=== PATIENT | male | born 1945 | race Two or more races ===

== ENCOUNTER 2024-03-01 12:49 | Inpatient (IN) | payer MEDICAID ==
[~2024-03-01] VITALS: Ht 175.3 cm; Wt 73.0 kg
[2024-03-01] MEDS ORDERED: methylPREDNISolone SOD SUCC 125 MG/2ML VIAL ONE (13:20)
[2024-03-01] MEDS ORDERED: IPRATROPIUM NEB FS 0.5 MG/2.5 ML AMPUL.NEB ONE (13:26)
[2024-03-01] MEDS ORDERED: ALBUTEROL FS 2.5 MG/3 ML VIAL.NEB ONE (13:26)
[2024-03-01] MEDS: methylPREDNISolone SOD SUCC 125 MG/2ML VIAL IV ONE (13:30)
[2024-03-01 13:45] VITALS: O2SAT 93
[2024-03-01] MEDS: ALBUTEROL FS 2.5 MG/3 ML VIAL.NEB CONTNEB ONE (13:45)
[2024-03-01] MEDS: IPRATROPIUM NEB FS 0.5 MG/2.5 ML AMPUL.NEB NEB ONE (13:45)
[2024-03-01 13:57] LABS: BASOPHILS % (AUTO) 0.3 % (0.0-2.0); EOSINOPHILS # (AUTO) 0.1 K/uL (0.0-0.7); EOSINOPHILS % (AUTO) 0.9 % (0.0-6.0); HEMATOCRIT 40 % (39-51); HEMOGLOBIN 13.1 g/dL (13.5-17.5); LYMPHOCYTES # (AUTO) 2.2 K/uL (0.8-4.8); LYMPHOCYTES % (AUTO) 33.3 % (20.0-44.0); MEAN CORPUSCULAR HEMOGLOBIN 27 PG (26.0-33.0); MEAN CORPUSCULAR HGB CONC 33 g/dl (31.0-36.0); MEAN CORPUSCULAR VOLUME 83 fL (80-96); MONOCYTES # (AUTO) 0.5 K/uL (0.1-1.30); MONOCYTES % (AUTO) 7.7 % (2.0-12.0); NEUTROPHILS # (AUTO) 3.8 K/uL (1.8-8.9); NEUTROPHILS % (AUTO) 57.8 % (43.0-81.0); PLATELET COUNT (AUTO) 269 K/uL (150-450); RED BLOOD CELL COUNT(AUTO) 4.86 MIL/uL (4.5-6.0); RED CELL DISTRIBUTION WIDTH 14.1 % (11.5-15.0); WHITE BLOOD COUNT (AUTO) 6.5 K/uL (4.3-11.0)
[2024-03-01] MEDS ORDERED: FUROSEMIDE 20 MG/2 ML VIAL ONE (13:59)
[2024-03-01 14:00] LABS: CALCIUM, SERUM 9.7 mg/dL (8.5-10.1); CARBON DIOXIDE 24 mmol/L (21-32); CHLORIDE 106 mmol/L (98-107); CREATININE 1.1 mg/dL (0.6-1.3); GLUCOSE 131 mg/dL (74-106); POTASSIUM 4.2 mmol/L (3.5-5.1); SODIUM SERUM 141 mmol/L (136-145); UREA NITROGEN, BLOOD 19 mg/dL (7-18)
[2024-03-01 14:03] LABS: D-DIMER 2.95 mg/L(FEU (0.17-0.50); INR 1.08 (0.91-1.10); PARTIAL THROMBOPLASTIN TIME 30.9 SEC (24.3-34.3); PROTHROMBIN TIME 11.4 SECS (9.2-11.1)
[2024-03-01] MEDS: FUROSEMIDE 20 MG/2 ML VIAL IV ONE (14:05)
[2024-03-01 14:08] VITALS: O2SAT 98
[2024-03-01 14:15] LABS: NT-PRO BNP 12578 pg/mL (0-125)
[2024-03-01] MEDS ORDERED: IOHEXOL-350 100 ML VIAL IV ONE (14:20)
[2024-03-01] MEDS ORDERED: IV NS 0.9% 250 ML IV ONE (14:21)
[2024-03-01] MEDS ORDERED: ASPIRIN EC 81 MG TABLET.DR PO ONE (14:38)
[2024-03-01] MEDS: ASPIRIN EC 81 MG TABLET.DR PO ONE (14:41)
[2024-03-01] MEDS ORDERED: ONDANSETRON HCL/PF 4 MG/2 ML VIAL IVP PRN (15:30)
[2024-03-01] MEDS ORDERED: MAGNESIUM HYDROXIDE 30 ML UDC PO PRN (15:30)
[2024-03-01] MEDS ORDERED: ACETAMINOPHEN 325 MG TABLET PO PRN (15:30)
[2024-03-01 16:22] VITALS: BP 139/98; TEMP 98.1; O2SAT 96
[2024-03-01] MEDS ORDERED: Z GUARD REMEDY 4 OZ OINT TP PRN (17:00)
[2024-03-01] MEDS: FUROSEMIDE 40 MG/4 ML VIAL IV SCH (17:33)
[2024-03-01] MEDS: ENOXAPARIN SODIUM 40 MG/0.4 ML DISP.SYRIN SQ SCH (19:01)
[2024-03-01 19:07] LABS: ABG BASE EXCESS -2.4 mmol/L; ABG OXYGEN SATURATION 92.8 % (92.0-98.5); ABG PCO2 32.3 mmHg (35.0-45.0); ABG PH 7.431 (7.350-7.450); ABG PO2 66.2 mmHg (75.0-100.0); ABG TOTAL HEMOGLOBIN 13.9 G/dL (13.5-18.0); COHb 0.4 % (0.5-1.5); MetHb 0.2 % (0.0-1.5); O2Hb 92.2 % (94.0-97.0); SITE, ABG Right Radial; VENT MODE, BG ROOM AIR
[2024-03-01 20:00] VITALS: BP 122/82; TEMP 98.4; O2SAT 96
[2024-03-01] MEDS: ATORVASTATIN 10 MG TABLET PO SCH (21:07)
[2024-03-02] VITALS: BP 115/85; TEMP 97.7; O2SAT 96
[2024-03-02 04:00] VITALS: BP 114/83; TEMP 97.5; O2SAT 95
[2024-03-02 07:13] LABS: HEMATOCRIT 38 % (39-51); HEMOGLOBIN 12.5 g/dL (13.5-17.5); LYMPHOCYTES # (AUTO) 0.8 K/uL (0.8-4.8); LYMPHOCYTES % (AUTO) 15.7 % (20.0-44.0); MEAN CORPUSCULAR HEMOGLOBIN 27 PG (26.0-33.0); MEAN CORPUSCULAR HGB CONC 33 g/dl (31.0-36.0); MEAN CORPUSCULAR VOLUME 82 fL (80-96); MONOCYTES # (AUTO) 0.3 K/uL (0.1-1.30); MONOCYTES % (AUTO) 6.2 % (2.0-12.0); NEUTROPHILS % (AUTO) 78.1 % (43.0-81.0); PLATELET COUNT (AUTO) 262 K/uL (150-450); RED BLOOD CELL COUNT(AUTO) 4.65 MIL/uL (4.5-6.0); RED CELL DISTRIBUTION WIDTH 14.2 % (11.5-15.0); WHITE BLOOD COUNT (AUTO) 5.1 K/uL (4.3-11.0)
[2024-03-02 07:24] LABS: CALCIUM, SERUM 9.4 mg/dL (8.5-10.1); MAGNESIUM 2.2 mg/dL (1.8-2.4); PHOSPHORUS 4.4 mg/dL (2.5-4.9)
[2024-03-02 07:54] LABS: THYROID STIMULATING HORMONE 0.24 uIU/mL (0.358-3.74)
[2024-03-02 08:00] VITALS: BP 108/71; TEMP 97.7; O2SAT 94
[2024-03-02] MEDS: PANTOPRAZOLE 40 MG TABLET.DR PO SCH (08:28)
[2024-03-02] MEDS: ASPIRIN EC 81 MG TABLET.DR PO SCH (08:44)
[2024-03-02 12:00] VITALS: BP 106/72; TEMP 97.9; O2SAT 95
[2024-03-02] MEDS: METOPROLOL TARTRATE 25 MG TABLET PO SCH (15:20)
[2024-03-02] MEDS: LOSARTAN POTASSIUM 25 MG TABLET PO SCH (15:20)
[2024-03-02 16:00] VITALS: BP 114/85; TEMP 97.9; O2SAT 94
[2024-03-02] MEDS: ENOXAPARIN SODIUM 40 MG/0.4 ML DISP.SYRIN SQ SCH (16:37)
[2024-03-02 20:00] VITALS: BP 115/78; TEMP 98; O2SAT 96
[2024-03-03] VITALS: BP 116/72; TEMP 98.6; O2SAT 98
[2024-03-03 04:00] VITALS: BP 110/70; TEMP 98.2; O2SAT 98
[2024-03-03 06:43] LABS: BASOPHILS % (AUTO) 0.1 % (0.0-2.0); EOSINOPHILS # (AUTO) 0.2 K/uL (0.0-0.7); EOSINOPHILS % (AUTO) 2.2 % (0.0-6.0); HEMATOCRIT 40 % (39-51); HEMOGLOBIN 12.9 g/dL (13.5-17.5); LYMPHOCYTES # (AUTO) 3.1 K/uL (0.8-4.8); LYMPHOCYTES % (AUTO) 38.1 % (20.0-44.0); MEAN CORPUSCULAR HEMOGLOBIN 27 PG (26.0-33.0); MEAN CORPUSCULAR HGB CONC 33 g/dl (31.0-36.0); MEAN CORPUSCULAR VOLUME 82 fL (80-96); MONOCYTES # (AUTO) 0.6 K/uL (0.1-1.30); MONOCYTES % (AUTO) 7.8 % (2.0-12.0); NEUTROPHILS # (AUTO) 4.1 K/uL (1.8-8.9); NEUTROPHILS % (AUTO) 51.8 % (43.0-81.0); PLATELET COUNT (AUTO) 264 K/uL (150-450); RED BLOOD CELL COUNT(AUTO) 4.82 MIL/uL (4.5-6.0)
[2024-03-03 07:02] LABS: CALCIUM, SERUM 9.1 mg/dL (8.5-10.1); CREATININE 1.3 mg/dL (0.6-1.3); MAGNESIUM 2.1 mg/dL (1.8-2.4); PHOSPHORUS 4.1 mg/dL (2.5-4.9); POTASSIUM 3.8 mmol/L (3.5-5.1)
[2024-03-03 07:11] LABS: THYROID STIMULATING HORMONE 0.79 uIU/mL (0.358-3.74)
[2024-03-03 08:00] VITALS: BP 107/81; TEMP 97.7; O2SAT 98
[2024-03-03 12:00] VITALS: BP 109/75; TEMP 98.4; O2SAT 97
[2024-03-03] MEDS: SPIRONOLACTONE 25 MG TABLET PO SCH (15:18)
[2024-03-03 16:00] VITALS: BP 101/71; TEMP 97.5; O2SAT 96
[2024-03-03] MEDS ORDERED: TEMAZEPAM 7.5 MG CAPSULE PO PRN (18:30)
[2024-03-03 20:00] VITALS: BP 101/72; TEMP 98.2; O2SAT 93
[2024-03-04] VITALS: BP 109/77; TEMP 98.1; O2SAT 96
[2024-03-04 04:00] VITALS: BP 111/83; TEMP 98; O2SAT 99
[2024-03-04 07:03] LABS: BASOPHILS % (AUTO) 0.4 % (0.0-2.0); EOSINOPHILS # (AUTO) 0.2 K/uL (0.0-0.7); EOSINOPHILS % (AUTO) 3.1 % (0.0-6.0); HEMATOCRIT 41 % (39-51); HEMOGLOBIN 13.6 g/dL (13.5-17.5); LYMPHOCYTES # (AUTO) 3.1 K/uL (0.8-4.8); LYMPHOCYTES % (AUTO) 40.6 % (20.0-44.0); MEAN CORPUSCULAR HEMOGLOBIN 27 PG (26.0-33.0); MEAN CORPUSCULAR HGB CONC 33 g/dl (31.0-36.0); MEAN CORPUSCULAR VOLUME 83 fL (80-96); MONOCYTES # (AUTO) 0.7 K/uL (0.1-1.30); MONOCYTES % (AUTO) 8.9 % (2.0-12.0); NEUTROPHILS # (AUTO) 3.6 K/uL (1.8-8.9); PLATELET COUNT (AUTO) 280 K/uL (150-450); RED BLOOD CELL COUNT(AUTO) 4.99 MIL/uL (4.5-6.0); WHITE BLOOD COUNT (AUTO) 7.6 K/uL (4.3-11.0)
[2024-03-04 07:18] LABS: CALCIUM, SERUM 8.6 mg/dL (8.5-10.1); CREATININE 1.2 mg/dL (0.6-1.3); PHOSPHORUS 4.3 mg/dL (2.5-4.9); POTASSIUM 4.3 mmol/L (3.5-5.1)
[2024-03-04 08:00] VITALS: BP 112/72; TEMP 97.6; O2SAT 99
[2024-03-04] MEDS: FUROSEMIDE 40 MG TABLET PO SCH (08:42)
[2024-03-04 12:00] VITALS: BP 99/75; TEMP 97.7; O2SAT 97
[2024-03-04] MEDS ORDERED: ATOR20TA PO (12:59)
[2024-03-04] MEDS ORDERED: FURO-144 PO (12:59)
[2024-03-04] MEDS ORDERED: METO25TA4 PO (12:59)
[2024-03-04] MEDS ORDERED: SPIR25TA PO (12:59)
[2024-03-04] MEDS ORDERED: ASPI-1420 PO (12:59)
[2024-03-04] MEDS ORDERED: LOSA25TA27 PO (12:59)
== END 2024-03-04 14:33 | disposition home or self-care (01) | DRG 194 ==
LOC: ER 12:55 → TELE1 16:09
PROVIDERS: ADMIT Nurse Practitioner Family; ATTEND Nurse Practitioner Family
DX: I50.21 Acute systolic (congestive) heart failure (principal); I21.A1 Myocardial infarction type 2; I42.9 Cardiomyopathy, unspecified; M10.9 Gout, unspecified; D64.9 Anemia, unspecified; M48.00 Spinal stenosis, site unspecified; J98.11 Atelectasis; R79.89 Other specified abnormal findings of blood chemistry; J90 Pleural effusion, not elsewhere classified; Z79.82 Long term (current) use of aspirin; Z79.899 Other long term (current) drug therapy
CPT/HCPCS: 36415; 36600; 71045-TC; 80048-TC; 80061-TC; 82803-TC; 83735-TC; 83880; 84100-TC; 84439-TC; 84443-TC; 84484-TC; 84550-TC; 85025-TC; 85378-TC; 85730-TC; 93307-TC; 94799-TC; G0378; J1650; J1940; J2919; J7050; Q9967